=== PATIENT | female | born 1940 | race American Indian/Alaskan Native ===

== ENCOUNTER 2016-10-10 18:48 | Emergency (ER) | payer MEDICARE ==
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
[2016-10-10 20:14] LABS: Basophils % (Auto) 0.4 % (0.0-1.8); Eosinophils % (Auto) 0.6 % (0.0-4.3); Hematocrit 41.2 % (30.3-42.9); Hemoglobin 13.6 gm/dl (10.1-14.3); Mean Corpuscular HGB Conc 33 % (30-34); Mean Corpuscular Hemoglobin 31 pg (28-32); Mean Corpuscular Volume 94 fl (79-97); Platelet Count 175 K/mm3 (140-440); Red Cell Distribution Width 13.6 % (13.2-15.2); White Blood Count 12.1 K/mm3 (4.5-11.0)
[2016-10-10 20:35] LABS: Albumin/Globulin Ratio 1.1 %; BUN/Creatinine Ratio 13.63; Bilirubin,Total 0.3 mg/dL (0.1-1.2); Calcium 9.3 mg/dL (8.4-10.2); Chloride 101.9 mmol/L (98-107); Potassium 3.9 mmol/L (3.6-5.0); Total Protein 7.7 g/dL (6.3-8.2)
[2016-10-10] MEDS ORDERED: GEODON IM ONE (20:41)
[2016-10-10 20:49] LABS: Urine Drugs of Abuse Note Disclamer
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
[2016-10-10 21:02] LABS: Bacteria,Urine 1+ /HPF (Negative); Mucus,Urine FEW /HPF; WBC,Urine < 1.0 /HPF (0.0-6.0)
[2016-10-10 21:06] LABS: Bilirubin,Urine Negative (Negative); Ketones,Urine Negative (Negative)
[2016-10-10 21:07] LABS: Blood,Urine Negative (Negative); Leukocyte Esterase,Urine Negative (Negative); Nitrite,Urine Negative (Negative); Protein,Urine <15 mg/dL mg/dL (Negative); Urobilinogen,Urine < 0.2 mg/dL (<2.0)
--- NOTE | 2016-10-10 22:12 | Cat Scan Report ---
FINAL REPORT PROCEDURE: CT HEAD/BRAIN WO CON TECHNIQUE: Computerized tomography of the head was performed without contrast material. HISTORY: aggressive behavior COMPARISON: Head CT dated May 07, 2016 FINDINGS: The visualized portions of the paranasal sinuses are clear. Mastoid air cells are clear. There is no calvarial fracture. There is no hydrocephalus. No acute intracranial hemorrhage or mass effect is seen. There is no evidence of acute CVA. Idiopathic calcifications are seen in the basal ganglia. IMPRESSION: No significant abnormality is seen.
[2016-10-11] MEDS ORDERED: TYLENOL PO ONE (05:58)
[2016-10-11 10:49] VITALS: BP 136/75
== END 2016-10-11 10:52 ==
LOC: EEVIPCON 18:48 → ED 18:48
DX: F91.9 Conduct disorder, unspecified (principal); I10 Essential (primary) hypertension; I50.9 Heart failure, unspecified; F20.0 Paranoid schizophrenia; F03.90 Unspecified dementia, unspecified severity, without behavioral disturbance, psychotic disturbance, mood disturbance, and anxiety; G89.29 Other chronic pain; E87.6 Hypokalemia; Z88.0 Allergy status to penicillin; Z88.2 Allergy status to sulfonamides
CPT/HCPCS: 36415; 70450; 80053; 80307; 81001; 82550; 85025; 96372; 99285; G0480; J3486; 80320